=== PATIENT | male | born 1960 | race Two or more races ===

== ENCOUNTER 2020-01-24 16:16 | Outpatient (CLI) | payer OTHER ==
[~2020-01-24] VITALS: Ht 185.4 cm; Wt 73.0 kg
[2020-01-24] MEDS ORDERED: PROTONIX40 MG (16:36)
[2020-01-24] MEDS ORDERED: ROSUVASTATIN CA20 MG (16:36)
[2020-01-24] MEDS ORDERED: TREXIMET 85-501 EACH (16:36)
== END 2020-01-24 16:40 | disposition home or self-care (01) ==
LOC: OFIC 805 16:16
PROVIDERS: ATTEND Otolaryngology
DX: K21.0 Gastro-esophageal reflux disease with esophagitis (principal); K13.79 Other lesions of oral mucosa

== ENCOUNTER 2020-02-24 08:29 | Outpatient (CLI) | payer OTHER ==
[~2020-02-24 08:29] MED LIST: PROTONIX40 MG; ROSUVASTATIN CA20 MG; TREXIMET 85-501 EACH
== END 2020-02-24 08:47 | disposition home or self-care (01) ==
LOC: RAD 08:29
DX: M25.852 Other specified joint disorders, left hip (principal); S73.192A Other sprain of left hip, initial encounter

== ENCOUNTER 2020-03-07 10:38 | Outpatient (CLI) | payer OTHER | END 2020-03-07 11:38 | disposition home or self-care (01) | LOC: OFIC 805 10:38 | PROVIDERS: ATTEND Otolaryngology | DX: K21.0 Gastro-esophageal reflux disease with esophagitis (principal); R22.1 Localized swelling, mass and lump, neck ==

== ENCOUNTER 2020-12-06 06:55 | Day surgery (SDC) | payer OTHER | END 2020-12-06 10:15 | disposition home or self-care (01) | LOC: AMB-ENDOS 06:55 | PROVIDERS: ATTEND Colon & Rectal Surgery | DX: K62.89 Other specified diseases of anus and rectum (principal); K64.0 First degree hemorrhoids; Z20.822 Contact with and (suspected) exposure to COVID-19 ==

== ENCOUNTER 2021-04-22 08:28 | Outpatient (CLI) | payer OTHER | END 2021-04-22 08:39 | disposition home or self-care (01) | LOC: NUCLEAR 08:28 | PROVIDERS: ATTEND Internal Medicine Cardiovascular Disease | DX: R07.89 Other chest pain (principal) | CPT/HCPCS: 78452; 93017; A9500 ==

== ENCOUNTER 2021-09-22 14:20 | Outpatient (CLI) | payer OTHER | END 2021-09-22 14:26 | disposition home or self-care (01) | LOC: RAD 14:20 | PROVIDERS: ATTEND General Practice | DX: R06.02 Shortness of breath (principal) ==

== ENCOUNTER 2021-10-01 08:53 | Outpatient (CLI) | payer OTHER | END 2021-10-01 09:10 | disposition home or self-care (01) | LOC: SONOGRAMA 08:53 | PROVIDERS: ATTEND General Practice | DX: R10.9 Unspecified abdominal pain (principal); R06.02 Shortness of breath ==

== ENCOUNTER 2022-03-11 07:31 | Outpatient (CLI) | payer OTHER | END 2022-03-11 07:39 | disposition home or self-care (01) | LOC: RAD 07:31 | PROVIDERS: ATTEND Orthopaedic Surgery Adult Reconstructive Orthopaedic Surgery | DX: Z96.642 Presence of left artificial hip joint (principal) ==